=== PATIENT | female | born 1980 | race Two or more races ===

== ENCOUNTER → 2018-10-29 | Outpatient (CLI) | payer OTHER ==
--- NOTE | 2018-10-29 13:42 | RAD ---
Examination: MRI of the left shoulder without contrast HISTORY: History of left shoulder pain COMPARISON: None available TECHNIQUE: Multiplanar, multisequence MR imaging of the left shoulder performed without contrast. FINDINGS: The long head of the biceps tendon within the bicipital groove. The attachment of the long head the biceps tendon to the superior labral anchor grossly appears intact. The attachment of the supraspinatus, infraspinatus tendon grossly appears intact. Minimal bursal sided fraying of the supraspinatus tendon. No evidence of full-thickness tear of the rotator cuff. The visualized labrum grossly appears unremarkable. Small amount of fluid identified in the subscapular recess identified. Mild degenerative changes acromioclavicular joint. Acromion is type II. The muscle bulk grossly appears unremarkable. Fat is present within the rotator interval. IMPRESSION: 1. Mild bursal sided fraying of the supraspinatus tendon. No evidence of full-thickness tear. Electronically signed by: Lowell Gonzalez MD (10/29/2018 1:39 PM) [id number]
== END | disposition home or self-care (01) ==
LOC: MRI 12:26
PROVIDERS: ATTEND Family Medicine
DX: M19.012 Primary osteoarthritis, left shoulder (principal)
CPT/HCPCS: 73221